=== PATIENT | female | born 1950 ===

== ENCOUNTER 2017-07-04 20:00 | Inpatient (IN) ==
[2017-07-04] MEDS ORDERED: PANTOPRAZOLE 40 MG VIAL IV STA (20:29)
[2017-07-04 21:41] LABS: Basophils % 1.2 % (0.0-0.8); Eosinophils # 0.1 10*3/uL (0.0-0.87); Eosinophils % 4.7 % (0.00-10.9); Hematocrit 33.9 VOL% (35.7-47.0); Immature Granulocytes % 1.2 %; Immature Granulocytes Absolute 0.02 #; Lymphocytes # 0.6 10*3/uL (1.4-4.0); Lymphocytes % 37.9 % (21.3-54.2); Mean Corpuscular HGB Conc 32.4 GM/DL (32-36); Mean Corpuscular Hemoglobin 35 PG (27-34); Mean Corpuscular Volume 106.6 FL (87-102); Monocytes # 0.4 10*3/uL (0.11-0.8); Monocytes % 24.3 % (1.7-12.7); Neutrophils # 0.5 10*3/uL (1.4-7.4); Neutrophils % 30.7 % (38.7-73.9); Red Blood Count 3.18 MC/CUMM (3.8-5.5); Red Cell Distribution Width 14.6 % (9.3-17.3); White Blood Count 1.7 T/CUMM (4-12)
[2017-07-04 21:44] LABS: Platelet Count 37 T/CUMM (130-400)
[2017-07-04 21:48] LABS: INR 1.1; PT Patient Result 11.5 SECS; Partial Thromboplastin Time 30.3 SECS (0-40)
[2017-07-04 21:57] LABS: Albumin 2.9 G/DL (3.4-5.0); Bilirubin,Total 0.6 MG/DL (0.2-1.0); Calcium 8.7 MG/DL (8.5-10.1); Osmolality,Calculated 283.7 MOS/KG (273-304); Potassium 4.3 MMOL/L (3.5-5.1); Total Protein 7.2 G/DL (6.4-8.3); Uric Acid 4.6 MG/DL (2.6-6.0)
[2017-07-04 22:29] LABS: Band Neutrophils 12 % (0-10); Eosinophils 5 % (0-10); Lymphocytes 38 % (20-55); Polychromasia Slight; Segmented Neutrophils 27 % (50-85); Total Cells Counted 100
[2017-07-05] MEDS ORDERED: ONDANSETRON 4 MG/2 ML VIAL IV PRN (00:15)
[2017-07-05] MEDS ORDERED: GLUCAGON 1 MG VIAL IM PRN (00:15)
[2017-07-05] MEDS ORDERED: ACETAMINOPHEN 325 MG TABLET PO PRN (00:15)
[2017-07-05] MEDS ORDERED: DEXTROSE 50% 25 GM/50 ML VIAL IV PRN (00:15)
[2017-07-05] MEDS ORDERED: SEVELAMER CARBONATE 800 MG TABLET PO SCH (00:30)
[2017-07-05 06:59] LABS: Basophils % 0.6 % (0.0-0.8); Eosinophils # 0.1 10*3/uL (0.0-0.87); Eosinophils % 5.5 % (0.00-10.9); Hematocrit 31.9 VOL% (35.7-47.0); Hemoglobin 10.2 GM/DL (12.0-16.0); Immature Granulocytes % 1.1 %; Immature Granulocytes Absolute 0.02 #; Lymphocytes # 0.6 10*3/uL (1.4-4.0); Lymphocytes % 30.9 % (21.3-54.2); Mean Corpuscular Hemoglobin 35 PG (27-34); Mean Corpuscular Volume 108.1 FL (87-102); Mean Platelet Volume 12.2 FL (9.6-12.0); Monocytes # 0.4 10*3/uL (0.11-0.8); Monocytes % 24.3 % (1.7-12.7); Neutrophils # 0.7 10*3/uL (1.4-7.4); Neutrophils % 37.6 % (38.7-73.9); Platelet Count 40 T/CUMM (130-400); Red Blood Count 2.95 MC/CUMM (3.8-5.5); Red Cell Distribution Width 14.9 % (9.3-17.3); White Blood Count 1.8 T/CUMM (4-12)
[2017-07-05 07:18] LABS: Calcium 8.3 MG/DL (8.5-10.1); Osmolality,Calculated 291.3 MOS/KG (273-304)
[2017-07-05 07:41] LABS: Atypical Lymphocytes Few; Band Neutrophils 4 % (0-10); Eosinophils 7 % (0-10); Lymphocytes 30 % (20-55); Segmented Neutrophils 41 % (50-85); Total Cells Counted 100
[2017-07-05 07:42] LABS: Hypochromasia 1+; Macrocytosis Slight; Ovalocytes Slight
[2017-07-05 07:43] LABS: Platelet Estimate Decreased
[2017-07-05] MEDS ORDERED: PANTOPRAZOLE 40 MG VIAL IV SCH (09:00)
[2017-07-05] MEDS: SEVELAMER CARBONATE 800 MG TABLET PO SCH ×2 (12:01→16:35)
[2017-07-05 13:35] LABS: % Iron Saturation 40.7 % (18-50); Ferritin 437.8 ng/ml (8-252); Total Protein 6.4 G/DL (6.4-8.3)
[2017-07-06 05:39] LABS: Basophils % 0.4 % (0.0-0.8); Eosinophils # 0.1 10*3/uL (0.0-0.87); Eosinophils % 4.5 % (0.00-10.9); Hematocrit 31.6 VOL% (35.7-47.0); Hemoglobin 10.5 GM/DL (12.0-16.0); Immature Granulocytes % 0.7 %; Immature Granulocytes Absolute 0.02 #; Lymphocytes # 0.6 10*3/uL (1.4-4.0); Mean Corpuscular HGB Conc 33.2 GM/DL (32-36); Mean Corpuscular Hemoglobin 35 PG (27-34); Mean Corpuscular Volume 104.3 FL (87-102); Mean Platelet Volume 11.6 FL (9.6-12.0); Monocytes # 0.5 10*3/uL (0.11-0.8); Monocytes % 17.2 % (1.7-12.7); Neutrophils # 1.5 10*3/uL (1.4-7.4); Neutrophils % 55.2 % (38.7-73.9); Red Blood Count 3.03 MC/CUMM (3.8-5.5); Red Cell Distribution Width 14.6 % (9.3-17.3); White Blood Count 2.7 T/CUMM (4-12)
[2017-07-06 05:44] LABS: Platelet Count 48 T/CUMM (130-400)
[2017-07-06 06:03] LABS: Calcium 8.2 MG/DL (8.5-10.1); Osmolality,Calculated 292.5 MOS/KG (273-304); Potassium 5.1 MMOL/L (3.5-5.1)
[2017-07-06 06:38] LABS: Band Neutrophils 2 % (0-10); Eosinophils 3 % (0-10); Hypochromasia 2+; Lymphocytes 18 % (20-55); Macrocytosis 1+; Platelet Estimate Decreased; Segmented Neutrophils 62 % (50-85); Total Cells Counted 100
[2017-07-06 07:20] LABS: Total Protein (Chem) 6.4 G/DL (6.4-8.3)
[2017-07-06 08:38] LABS: Albumin (SPE) 3.4 G/DL (3.2-5.3); Albumin (SPE) Rel % 53.4 %; Alpha 1 (SPE) 0.2 G/DL (0.1-0.4); Alpha 2 (SPE) 0.5 G/DL (0.4-1.0); Alpha 2 (SPE) Rel % 8.1 %; Beta (SPE) 0.5 G/DL (0.5-1.1); Beta (SPE) Rel % 7.5 %; Gamma (SPE) 1.8 G/DL (0.7-1.7)
[2017-07-06] MEDS: SEVELAMER CARBONATE 800 MG TABLET PO SCH ×3 (09:22→18:36)
[2017-07-06 11:46] LABS: Hepatitis A Ab IgM Quant 0.13 Index; Hepatitis A Ab IgM Result Negative (Negative); Hepatitis B Core IgM Quant 0.19 Index; Hepatitis B Core IgM Result Negative (Negative); Hepatitis B Surface Ag Quant < 0.10 Index; Hepatitis B Surface Ag Result Negative (Negative); Hepatitis C Virus Ab Result Negative (Negative)
[2017-07-06] MEDS ORDERED: ALUMINUM/MAGNES/SIMETH MAX STR 30 ML UDCUP PO PRN (23:11)
[2017-07-07 07:29] VITALS: BP 122/74
[2017-07-07] MEDS: SEVELAMER CARBONATE 800 MG TABLET PO SCH (09:33)
[2017-07-07 10:01] LABS: Immuno Free Light Chain Lambda 34.11 MG/DL (0.57-2.63); Immuno Free Light Chain Ratio 1.22 MG/DL (0.26-1.65)
== END 2017-07-07 11:50 | disposition home or self-care (01) | DRG 441 ==
LOC: EDUNIT# → EDBD → N.ED 20:00 → SUATTDRO 07-05 00:18 → N.EDINP 07-05 00:18 → N.4E 07-05 00:46
PROVIDERS: ADMIT Internal Medicine Geriatric Medicine; ATTEND Internal Medicine

== ENCOUNTER 2018-07-26 12:29 | Inpatient (IN) ==
[2018-07-26] MEDS ORDERED: SODIUM CHLORIDE 0.9% 500 ML IV STA (13:05)
[2018-07-26 13:43] LABS: Basophils % 0.4 % (0.0-0.8); Eosinophils % 1.1 % (0.00-10.9); Immature Granulocytes % 0.7 %; Immature Granulocytes Absolute 0.02 #; Lymphocytes # 0.4 10*3/uL (1.4-4.0); Lymphocytes % 15.9 % (21.3-54.2); Mean Corpuscular Volume 111.1 FL (87-102); Mean Platelet Volume 12.6 FL (9.6-12.0); Monocytes % 16.6 % (1.7-12.7); Neutrophils % 65.3 % (38.7-73.9); Red Blood Count 1.71 MC/CUMM (3.8-5.5); Red Cell Distribution Width 17.2 % (9.3-17.3); White Blood Count 2.7 T/CUMM (4-12)
[2018-07-26 13:46] LABS: Hemoglobin 5.7 GM/DL (12.0-16.0); Platelet Count 12 T/CUMM (130-400)
[2018-07-26] MEDS ORDERED: SODIUM CHLORIDE 0.9% 1,000 ML IV PRN (13:55)
[2018-07-26 14:09] LABS: Basophils % 0.4 % (0.0-0.8); Eosinophils % 0.7 % (0.00-10.9); Hematocrit 31.8 VOL% (35.7-47.0); Hemoglobin 9.7 GM/DL (12.0-16.0); Immature Granulocytes % 0.7 %; Immature Granulocytes Absolute 0.03 #; Lymphocytes # 0.7 10*3/uL (1.4-4.0); Lymphocytes % 14.9 % (21.3-54.2); Mean Corpuscular HGB Conc 30.5 GM/DL (32-36); Mean Corpuscular Volume 106.7 FL (87-102); Mean Platelet Volume 12.4 FL (9.6-12.0); Monocytes % 15.1 % (1.7-12.7); Neutrophils % 68.2 % (38.7-73.9); Red Blood Count 2.98 MC/CUMM (3.8-5.5); Red Cell Distribution Width 17.2 % (9.3-17.3); White Blood Count 4.6 T/CUMM (4-12)
[2018-07-26 14:11] LABS: Platelet Count 26 T/CUMM (130-400)
[2018-07-26 14:19] LABS: Hypochromasia Slight; Lymphocytes 8 % (20-55); Microcytosis 1+; Ovalocytes 1+; Platelet Estimate Decreased; Polychromasia Few; Segmented Neutrophils 83 % (50-85); Spherocytes Few; Total Cells Counted 100
[2018-07-26 14:21] LABS: Hypochromasia Slight; Microcytosis 1+; Ovalocytes 1+; Platelet Estimate Decreased; Polychromasia Few; Spherocytes Few
[2018-07-26 14:45] LABS: Albumin 2.7 G/DL (3.4-5.0); Bilirubin,Total 1.2 MG/DL (0.2-1.0); Calcium 8.6 MG/DL (8.5-10.1); Osmolality,Calculated 285.4 MOS/KG (273-304)
[2018-07-26] MEDS ORDERED: DOCUSATE SODIUM 100 MG CAPSULE PO PRN (15:53)
[2018-07-26] MEDS ORDERED: ONDANSETRON 4 MG/2 ML VIAL IV PRN (15:53)
[2018-07-26] MEDS ORDERED: guaiFENesin/DM ER 600-30 MG TABLET PO PRN (15:53)
[2018-07-26] MEDS ORDERED: NOREPINEPHRINE 8 MG in SODIUM CHLORIDE 0.9% 242 ML IV PRN (16:25)
[2018-07-26 16:29] LABS: Risk Ratio 1.55; Thyroid Stimulating Hormone 10.2 uIU/ml (0.358-3.74); VLDL CHOLESTEROL 14.2 MG/DL
[2018-07-26] MEDS ORDERED: GLUCAGON 1 MG VIAL IM PRN (16:38)
[2018-07-26] MEDS ORDERED: DEXTROSE 50% 25 GM/50 ML VIAL IV PRN (16:38)
[2018-07-26 17:28] LABS: Hematocrit 30.6 VOL% (35.7-47.0); Hemoglobin 9.3 GM/DL (12.0-16.0)
[2018-07-26] MEDS ORDERED: fentaNYL 100 MCG/2 ML VIAL IV PRN (20:01)
[2018-07-26 21:00] LABS: Hemoglobin 9.3 GM/DL (12.0-16.0)
[2018-07-26] MEDS: INSULIN LISPRO 100 UNIT/ML SUBCUT SCH (21:33)
[2018-07-27 00:43] LABS: Hemoglobin 9.3 GM/DL (12.0-16.0)
[2018-07-27] MEDS ORDERED: LORazepam 2 MG/1 ML VIAL IM ONE (03:53)
[2018-07-27] MEDS ORDERED: LORazepam 2 MG/1 ML VIAL ONE (03:57)
[2018-07-27 04:32] LABS: Basophils % 0.4 % (0.0-0.8); Eosinophils % 0.6 % (0.00-10.9); Hematocrit 30.1 VOL% (35.7-47.0); Hemoglobin 9.1 GM/DL (12.0-16.0); Immature Granulocytes % 0.6 %; Immature Granulocytes Absolute 0.03 #; Lymphocytes # 0.6 10*3/uL (1.4-4.0); Lymphocytes % 12.4 % (21.3-54.2); Mean Corpuscular HGB Conc 30.2 GM/DL (32-36); Mean Corpuscular Volume 107.9 FL (87-102); Mean Platelet Volume 12.8 FL (9.6-12.0); Red Blood Count 2.79 MC/CUMM (3.8-5.5); Red Cell Distribution Width 17.4 % (9.3-17.3); White Blood Count 4.9 T/CUMM (4-12)
[2018-07-27 04:38] LABS: Platelet Count 26 T/CUMM (130-400)
[2018-07-27 04:53] LABS: Albumin 2.5 G/DL (3.4-5.0); Bilirubin,Total 1.4 MG/DL (0.2-1.0); Calcium 8.7 MG/DL (8.5-10.1); Osmolality,Calculated 289.4 MOS/KG (273-304); Total Protein 6.7 G/DL (6.4-8.3)
[2018-07-27 05:24] LABS: Platelet Estimate Decreased
[2018-07-27] MEDS: INSULIN LISPRO 100 UNIT/ML SUBCUT SCH ×4 (08:33→21:23)
[2018-07-27] MEDS ORDERED: PANTOPRAZOLE 40 MG TABLET PO SCH (09:00)
[2018-07-27] MEDS ORDERED: DOCUSATE SODIUM 100 MG CAPSULE PO PRN (10:46)
[2018-07-27] MEDS: SEVELAMER CARBONATE 800 MG TABLET PO SCH ×2 (12:17→17:23)
[2018-07-27] MEDS ORDERED: SODIUM CHLORIDE 0.9% 500 ML IV ONE (16:22)
[2018-07-27 22:44] LABS: Folate 4.5 NG/ML (5.4-24.0)
[2018-07-27] MEDS: NYSTATIN CREAM 15 GM TUBE TOP SCH (23:35)
[2018-07-28 04:38] LABS: Basophils % 0.4 % (0.0-0.8); Eosinophils # 0.1 10*3/uL (0.0-0.87); Eosinophils % 2.2 % (0.00-10.9); Hematocrit 25.8 VOL% (35.7-47.0); Hemoglobin 7.8 GM/DL (12.0-16.0); Immature Granulocytes % 0.9 %; Immature Granulocytes Absolute 0.04 #; Lymphocytes % 21.2 % (21.3-54.2); Mean Corpuscular HGB Conc 30.2 GM/DL (32-36); Mean Corpuscular Volume 107.5 FL (87-102); Mean Platelet Volume 13.1 FL (9.6-12.0); Monocytes % 11.3 % (1.7-12.7); Red Cell Distribution Width 17.4 % (9.3-17.3); White Blood Count 4.5 T/CUMM (4-12)
[2018-07-28 04:44] LABS: Platelet Count 35 T/CUMM (130-400)
[2018-07-28 04:50] LABS: Calcium 8.8 MG/DL (8.5-10.1); Osmolality,Calculated 300.1 MOS/KG (273-304)
[2018-07-28 04:55] LABS: Albumin 2.3 G/DL (3.4-5.0); Bilirubin,Total 1.3 MG/DL (0.2-1.0); Calcium 8.9 MG/DL (8.5-10.1); Osmolality,Calculated 299.1 MOS/KG (273-304); Total Protein 5.9 G/DL (6.4-8.3)
[2018-07-28] MEDS ORDERED: SODIUM CHLORIDE 0.9% 1,000 ML IV PRN (08:03)
[2018-07-28] MEDS ORDERED: CYANOCOBALAMIN 1000 MCG/1 ML VIAL IM ONE (09:00)
[2018-07-28 09:15] LABS: INR 1.3; PT Patient Result 13.8 SECS; Partial Thromboplastin Time 29.2 SECS (0-40)
[2018-07-28] MEDS: NYSTATIN CREAM 15 GM TUBE TOP SCH ×2 (09:15→21:01)
[2018-07-28] MEDS: FOLIC ACID 1 MG TABLET PO SCH ×2 (09:16→20:46)
[2018-07-28] MEDS: predniSONE 20 MG TABLET PO SCH (09:16)
[2018-07-28] MEDS: FAMOTIDINE 20 MG TABLET PO SCH ×2 (09:16→20:46)
[2018-07-28] MEDS: MIDODRINE 5 MG TABLET PO SCH ×3 (09:16→20:46)
[2018-07-28] MEDS: SEVELAMER CARBONATE 800 MG TABLET PO SCH ×3 (09:16→17:09)
[2018-07-28] MEDS: CINACALCET 30 MG TABLET PO SCH (09:16)
[2018-07-28] MEDS: SELENIUM SULFIDE 2.5% LOTION 120 ML BOTTLE TOP SCH (09:17)
[2018-07-28] MEDS: INSULIN LISPRO 100 UNIT/ML SUBCUT SCH ×4 (09:17→21:40)
[2018-07-28] MEDS: LIDOCAINE/PRILOCAINE CREAM 5 GM TUBE TOP SCH (13:03)
[2018-07-28 14:25] LABS: Hematocrit 34.1 VOL% (35.7-47.0); Hemoglobin 10.5 GM/DL (12.0-16.0)
[2018-07-29 06:58] LABS: Basophils % 0.3 % (0.0-0.8); Eosinophils # 0.1 10*3/uL (0.0-0.87); Hemoglobin 8.9 GM/DL (12.0-16.0); Immature Granulocytes % 0.9 %; Immature Granulocytes Absolute 0.05 #; Lymphocytes # 1.1 10*3/uL (1.4-4.0); Lymphocytes % 18.3 % (21.3-54.2); Mean Corpuscular HGB Conc 31.8 GM/DL (32-36); Mean Corpuscular Volume 98.6 FL (87-102); Mean Platelet Volume 12.2 FL (9.6-12.0); Monocytes % 12.3 % (1.7-12.7); Neutrophils % 67.2 % (38.7-73.9); Red Blood Count 2.84 MC/CUMM (3.8-5.5); Red Cell Distribution Width 22.2 % (9.3-17.3); White Blood Count 5.8 T/CUMM (4-12)
[2018-07-29 07:10] LABS: Platelet Count 36 T/CUMM (130-400)
[2018-07-29 07:16] LABS: Hypochromasia 1+; Platelet Estimate Decreased
[2018-07-29 07:17] LABS: Albumin 2.1 G/DL (3.4-5.0); Bilirubin,Total 1.4 MG/DL (0.2-1.0); Calcium 8.4 MG/DL (8.5-10.1); Macrocytosis Slight; Total Protein 5.8 G/DL (6.4-8.3)
[2018-07-29 07:18] LABS: Polychromasia Slight
[2018-07-29] MEDS: SEVELAMER CARBONATE 800 MG TABLET PO SCH ×3 (08:00→17:13)
[2018-07-29] MEDS: predniSONE 20 MG TABLET PO SCH (08:38)
[2018-07-29] MEDS: CINACALCET 30 MG TABLET PO SCH (08:38)
[2018-07-29] MEDS: MIDODRINE 5 MG TABLET PO SCH ×3 (08:39→21:02)
[2018-07-29] MEDS: FAMOTIDINE 20 MG TABLET PO SCH ×2 (08:40→21:02)
[2018-07-29] MEDS: NYSTATIN CREAM 15 GM TUBE TOP SCH ×2 (08:40→21:06)
[2018-07-29] MEDS: INSULIN LISPRO 100 UNIT/ML SUBCUT SCH ×4 (08:40→22:24)
[2018-07-29] MEDS ORDERED: MIDODRINE 2.5 MG TABLET PO SCH (09:00)
[2018-07-29] MEDS: SELENIUM SULFIDE 2.5% LOTION 120 ML BOTTLE TOP SCH (11:14)
[2018-07-29] MEDS: FOLIC ACID 1 MG TABLET PO SCH ×2 (11:14→21:02)
[2018-07-29 15:32] LABS: Hepatitis B Core IgM Quant < 0.05 Index; Hepatitis B Surface Ag Quant < 0.10 Index; Hepatitis B Surface Ag Result Negative (Negative); Hepatitis C Virus Ab Result Negative (Negative)
[2018-07-30 05:02] LABS: Basophils % 0.3 % (0.0-0.8); Eosinophils % 0.3 % (0.00-10.9); Hematocrit 31.8 VOL% (35.7-47.0); Hemoglobin 9.8 GM/DL (12.0-16.0); Immature Granulocytes % 1.3 %; Immature Granulocytes Absolute 0.08 #; Lymphocytes # 0.8 10*3/uL (1.4-4.0); Lymphocytes % 13.4 % (21.3-54.2); Mean Corpuscular HGB Conc 30.8 GM/DL (32-36); Mean Platelet Volume 10.9 FL (9.6-12.0); Monocytes % 10.6 % (1.7-12.7); Neutrophils % 74.1 % (38.7-73.9); Red Blood Count 3.18 MC/CUMM (3.8-5.5); Red Cell Distribution Width 21.6 % (9.3-17.3); White Blood Count 6.1 T/CUMM (4-12)
[2018-07-30 05:06] LABS: Platelet Count 46 T/CUMM (130-400)
[2018-07-30 05:11] LABS: Calcium 8.4 MG/DL (8.5-10.1)
[2018-07-30] MEDS ORDERED: SODIUM CHLORIDE 0.9% 250 ML IV SCH (08:00)
[2018-07-30] MEDS: INSULIN LISPRO 100 UNIT/ML SUBCUT SCH ×4 (13:57→21:46)
[2018-07-30] MEDS: MIDODRINE 5 MG TABLET PO SCH ×3 (13:58→20:53)
[2018-07-30] MEDS: SEVELAMER CARBONATE 800 MG TABLET PO SCH ×3 (13:58→16:29)
[2018-07-30] MEDS: FAMOTIDINE 20 MG TABLET PO SCH ×2 (16:29→20:53)
[2018-07-30] MEDS: predniSONE 20 MG TABLET PO SCH (16:29)
[2018-07-30] MEDS: FOLIC ACID 1 MG TABLET PO SCH ×2 (16:29→20:53)
[2018-07-30] MEDS: CINACALCET 30 MG TABLET PO SCH (16:29)
[2018-07-30] MEDS: NYSTATIN CREAM 15 GM TUBE TOP SCH ×2 (16:30→20:54)
[2018-07-30] MEDS: LIDOCAINE/PRILOCAINE CREAM 5 GM TUBE TOP SCH (18:26)
[2018-07-30] MEDS: SELENIUM SULFIDE 2.5% LOTION 120 ML BOTTLE TOP SCH (18:26)
[2018-07-31] MEDS: CINACALCET 30 MG TABLET PO SCH (08:37)
[2018-07-31] MEDS: SEVELAMER CARBONATE 800 MG TABLET PO SCH ×3 (08:37→16:55)
[2018-07-31] MEDS: predniSONE 20 MG TABLET PO SCH (08:38)
[2018-07-31] MEDS: NYSTATIN CREAM 15 GM TUBE TOP SCH ×2 (08:38→22:06)
[2018-07-31] MEDS: MIDODRINE 5 MG TABLET PO SCH ×3 (08:38→22:02)
[2018-07-31] MEDS: FOLIC ACID 1 MG TABLET PO SCH ×2 (08:38→22:02)
[2018-07-31] MEDS: FAMOTIDINE 20 MG TABLET PO SCH ×2 (08:38→22:02)
[2018-07-31] MEDS: INSULIN LISPRO 100 UNIT/ML SUBCUT SCH ×4 (08:44→22:08)
[2018-07-31] MEDS: SELENIUM SULFIDE 2.5% LOTION 120 ML BOTTLE TOP SCH (13:02)
[2018-08-01 06:23] LABS: Basophils % 0.2 % (0.0-0.8); Eosinophils % 0.6 % (0.00-10.9); Hematocrit 31.3 VOL% (35.7-47.0); Hemoglobin 9.8 GM/DL (12.0-16.0); Immature Granulocytes % 1.4 %; Immature Granulocytes Absolute 0.09 #; Lymphocytes # 0.9 10*3/uL (1.4-4.0); Lymphocytes % 14.2 % (21.3-54.2); Mean Corpuscular HGB Conc 31.3 GM/DL (32-36); Mean Platelet Volume 11.4 FL (9.6-12.0); Monocytes % 13.3 % (1.7-12.7); Neutrophils % 70.3 % (38.7-73.9); Red Cell Distribution Width 21.4 % (9.3-17.3); White Blood Count 6.3 T/CUMM (4-12)
[2018-08-01 06:24] LABS: Platelet Count 43 T/CUMM (130-400)
[2018-08-01 06:41] LABS: Calcium 8.5 MG/DL (8.5-10.1); Osmolality,Calculated 293.8 MOS/KG (273-304)
[2018-08-01 06:56] LABS: Hypochromasia 1+; Ovalocytes Slight; Platelet Estimate Decreased
[2018-08-01] MEDS: SEVELAMER CARBONATE 800 MG TABLET PO SCH ×3 (08:26→16:39)
[2018-08-01] MEDS: FOLIC ACID 1 MG TABLET PO SCH ×2 (08:26→21:40)
[2018-08-01] MEDS: MIDODRINE 5 MG TABLET PO SCH ×3 (08:26→21:40)
[2018-08-01] MEDS: FAMOTIDINE 20 MG TABLET PO SCH ×2 (08:26→21:40)
[2018-08-01] MEDS: predniSONE 20 MG TABLET PO SCH (08:26)
[2018-08-01] MEDS: NYSTATIN CREAM 15 GM TUBE TOP SCH ×2 (08:27→21:40)
[2018-08-01] MEDS: INSULIN LISPRO 100 UNIT/ML SUBCUT SCH ×4 (08:27→21:47)
[2018-08-01] MEDS: CINACALCET 30 MG TABLET PO SCH (12:17)
[2018-08-01] MEDS: SELENIUM SULFIDE 2.5% LOTION 120 ML BOTTLE TOP SCH (12:17)
[2018-08-02 05:21] LABS: Basophils % 0.3 % (0.0-0.8); Eosinophils % 0.6 % (0.00-10.9); Hematocrit 31.6 VOL% (35.7-47.0); Hemoglobin 9.8 GM/DL (12.0-16.0); Immature Granulocytes % 1.6 %; Immature Granulocytes Absolute 0.11 #; Lymphocytes # 1.1 10*3/uL (1.4-4.0); Mean Platelet Volume 12.2 FL (9.6-12.0); Monocytes % 11.5 % (1.7-12.7); Red Blood Count 3.13 MC/CUMM (3.8-5.5); Red Cell Distribution Width 21.3 % (9.3-17.3)
[2018-08-02 05:27] LABS: Platelet Count 48 T/CUMM (130-400)
[2018-08-02 05:42] LABS: Hypochromasia Slight; Ovalocytes Slight; Platelet Estimate Decreased
[2018-08-02 05:44] LABS: Macrocytosis Slight
[2018-08-02 05:46] LABS: Calcium 8.1 MG/DL (8.5-10.1)
[2018-08-02] MEDS: SEVELAMER CARBONATE 800 MG TABLET PO SCH ×3 (07:46→16:50)
[2018-08-02] MEDS: INSULIN LISPRO 100 UNIT/ML SUBCUT SCH ×4 (07:50→23:03)
[2018-08-02] MEDS: FAMOTIDINE 20 MG TABLET PO SCH ×2 (08:33→21:18)
[2018-08-02] MEDS: MIDODRINE 5 MG TABLET PO SCH ×3 (08:33→21:19)
[2018-08-02] MEDS: CINACALCET 30 MG TABLET PO SCH (08:33)
[2018-08-02] MEDS: NYSTATIN CREAM 15 GM TUBE TOP SCH ×2 (08:33→21:18)
[2018-08-02] MEDS: predniSONE 20 MG TABLET PO SCH (08:33)
[2018-08-02] MEDS: FOLIC ACID 1 MG TABLET PO SCH ×2 (08:33→21:18)
[2018-08-02] MEDS: SELENIUM SULFIDE 2.5% LOTION 120 ML BOTTLE TOP SCH (08:34)
[2018-08-02] MEDS: LIDOCAINE/PRILOCAINE CREAM 5 GM TUBE TOP SCH (10:08)
[2018-08-02] MEDS ORDERED: BISACODYL 5 MG TABLET PO ONE (12:00)
[2018-08-02] MEDS ORDERED: ceFAZolin 1,000 MG in SYRINGE 1 EACH IV ONE (13:01)
[2018-08-02] MEDS ORDERED: MIDODRINE 5 MG TABLET PO ONE (13:34)
[2018-08-02] MEDS ORDERED: BUPIVACAINE 0.25% /EPI 10 ML VIAL ONE (13:44)
[2018-08-02] MEDS ORDERED: HEPARIN 5,000 UNIT/1 ML VIAL ONE (13:44)
[2018-08-02] MEDS ORDERED: LIDOCAINE 1%/EPI INJ 20 ML VIAL ONE (13:44)
[2018-08-02] MEDS ORDERED: fentaNYL 100 MCG/2 ML VIAL ONE (15:30)
[2018-08-02] MEDS ORDERED: PROPOFOL 200 MG/20 ML VIAL IV ONE (15:30)
[2018-08-02] MEDS ORDERED: HEPARIN 10,000 UNIT/10 ML VIAL IV PRN (16:39)
[2018-08-02] MEDS ORDERED: POLYETHYLENE GLYCOL POWDER 255 GM BOTTLE PO ONE (18:00)
[2018-08-03 04:56] LABS: Basophils % 0.2 % (0.0-0.8); Eosinophils % 0.7 % (0.00-10.9); Hemoglobin 10.2 GM/DL (12.0-16.0); Immature Granulocytes % 1.2 %; Immature Granulocytes Absolute 0.07 #; Lymphocytes # 0.7 10*3/uL (1.4-4.0); Mean Corpuscular HGB Conc 30.9 GM/DL (32-36); Mean Corpuscular Volume 102.5 FL (87-102); Mean Platelet Volume 11.5 FL (9.6-12.0); Monocytes % 13.5 % (1.7-12.7); Neutrophils % 71.4 % (38.7-73.9); Red Blood Count 3.22 MC/CUMM (3.8-5.5); Red Cell Distribution Width 21.4 % (9.3-17.3); White Blood Count 5.7 T/CUMM (4-12)
[2018-08-03 05:03] LABS: Platelet Count 40 T/CUMM (130-400)
[2018-08-03 05:09] LABS: INR 1.2; PT Patient Result 13.4 SECS
[2018-08-03 05:16] LABS: Albumin 2.6 G/DL (3.4-5.0); Bilirubin,Total 1.7 MG/DL (0.2-1.0); Calcium 8.5 MG/DL (8.5-10.1); Total Protein 6.3 G/DL (6.4-8.3)
[2018-08-03 05:55] LABS: Hypochromasia Slight; Macrocytosis 1+
[2018-08-03 05:56] LABS: Anisocytosis 1+; Ovalocytes Slight; Platelet Estimate Decreased
[2018-08-03] MEDS ORDERED: SODIUM CHLORIDE 0.9% 1,000 ML IV PRN (06:51)
[2018-08-03] MEDS: INSULIN LISPRO 100 UNIT/ML SUBCUT SCH ×4 (07:17→20:20)
[2018-08-03] MEDS ORDERED: SODIUM CHLORIDE 0.9% 250 ML IV SCH (08:00)
[2018-08-03] MEDS ORDERED: LIDOCAINE 2% 5 ML VIAL ONE (09:00)
[2018-08-03] MEDS ORDERED: ETOMIDATE 20 MG/10 ML VIAL IV ONE (09:00)
[2018-08-03] MEDS ORDERED: PROPOFOL 200 MG/20 ML VIAL IV ONE (09:00)
[2018-08-03] MEDS: SEVELAMER CARBONATE 800 MG TABLET PO SCH ×3 (09:36→17:20)
[2018-08-03] MEDS: MIDODRINE 5 MG TABLET PO SCH ×3 (09:38→20:19)
[2018-08-03] MEDS: predniSONE 20 MG TABLET PO SCH (10:25)
[2018-08-03] MEDS: CINACALCET 30 MG TABLET PO SCH (10:25)
[2018-08-03] MEDS: SELENIUM SULFIDE 2.5% LOTION 120 ML BOTTLE TOP SCH (10:25)
[2018-08-03] MEDS: FOLIC ACID 1 MG TABLET PO SCH ×2 (10:25→20:19)
[2018-08-03] MEDS: NYSTATIN CREAM 15 GM TUBE TOP SCH ×2 (10:25→20:20)
[2018-08-03] MEDS: FAMOTIDINE 20 MG TABLET PO SCH ×2 (10:25→20:19)
[2018-08-03] MEDS: DEXTROSE 10% 1,000 ML IV SCH (11:00)
[2018-08-04] MEDS: SEVELAMER CARBONATE 800 MG TABLET PO SCH ×3 (07:31→17:03)
[2018-08-04] MEDS: MIDODRINE 5 MG TABLET PO SCH ×4 (07:32→22:23)
[2018-08-04] MEDS: FAMOTIDINE 20 MG TABLET PO SCH ×2 (07:32→11:50)
[2018-08-04] MEDS: predniSONE 20 MG TABLET PO SCH ×2 (07:32→11:50)
[2018-08-04] MEDS: INSULIN LISPRO 100 UNIT/ML SUBCUT SCH ×4 (07:32→22:26)
[2018-08-04 08:00] LABS: Basophils % 0.5 % (0.0-0.8); Eosinophils # 0.1 10*3/uL (0.0-0.87); Eosinophils % 2.3 % (0.00-10.9); Hematocrit 36.2 VOL% (35.7-47.0); Hemoglobin 10.9 GM/DL (12.0-16.0); Immature Granulocytes % 2.3 %; Immature Granulocytes Absolute 0.13 #; Lymphocytes # 0.8 10*3/uL (1.4-4.0); Lymphocytes % 14.7 % (21.3-54.2); Mean Corpuscular HGB Conc 30.1 GM/DL (32-36); Mean Corpuscular Volume 104.3 FL (87-102); Mean Platelet Volume 11.2 FL (9.6-12.0); Monocytes % 16.4 % (1.7-12.7); Neutrophils % 63.8 % (38.7-73.9); Red Blood Count 3.47 MC/CUMM (3.8-5.5); Red Cell Distribution Width 21.2 % (9.3-17.3); White Blood Count 5.7 T/CUMM (4-12)
[2018-08-04 08:02] LABS: Platelet Count 59 T/CUMM (130-400)
[2018-08-04 08:19] LABS: Calcium 7.9 MG/DL (8.5-10.1); Osmolality,Calculated 283.1 MOS/KG (273-304)
[2018-08-04 08:35] LABS: Atypical Lymphocytes Few; Eosinophils 1 % (0-10); Lymphocytes 17 % (20-55); Metamyelocytes 1 %; Segmented Neutrophils 69 % (50-85); Total Cells Counted 100
[2018-08-04 08:36] LABS: Macrocytosis 1+
[2018-08-04 08:38] LABS: Platelet Estimate Decreased
[2018-08-04] MEDS: LIDOCAINE/PRILOCAINE CREAM 5 GM TUBE TOP SCH (11:50)
[2018-08-04] MEDS: SELENIUM SULFIDE 2.5% LOTION 120 ML BOTTLE TOP SCH (11:50)
[2018-08-04] MEDS: CINACALCET 30 MG TABLET PO SCH (13:29)
[2018-08-04] MEDS: NYSTATIN CREAM 15 GM TUBE TOP SCH ×2 (13:30→22:24)
[2018-08-04] MEDS: FOLIC ACID 1 MG TABLET PO SCH ×2 (17:04→22:23)
[2018-08-04] MEDS: DEXTROSE 10% 1,000 ML IV SCH (17:50)
[2018-08-05 05:44] LABS: Basophils % 0.2 % (0.0-0.8); Eosinophils # 0.1 10*3/uL (0.0-0.87); Eosinophils % 1.9 % (0.00-10.9); Hematocrit 31.3 VOL% (35.7-47.0); Hemoglobin 9.5 GM/DL (12.0-16.0); Immature Granulocytes Absolute 0.12 #; Lymphocytes # 0.9 10*3/uL (1.4-4.0); Lymphocytes % 14.5 % (21.3-54.2); Mean Corpuscular HGB Conc 30.4 GM/DL (32-36); Mean Platelet Volume 11.9 FL (9.6-12.0); NRBC # 0.02 10*3/uL; Neutrophils % 67.4 % (38.7-73.9); Red Blood Count 3.01 MC/CUMM (3.8-5.5); Red Cell Distribution Width 20.6 % (9.3-17.3); White Blood Count 5.9 T/CUMM (4-12)
[2018-08-05 05:49] LABS: Platelet Count 59 T/CUMM (130-400)
[2018-08-05 06:02] LABS: Osmolality,Calculated 279.7 MOS/KG (273-304)
[2018-08-05 07:09] LABS: Platelet Estimate Decreased
[2018-08-05 07:10] LABS: Anisocytosis 2+; Macrocytosis 1+
[2018-08-05] MEDS: SEVELAMER CARBONATE 800 MG TABLET PO SCH ×3 (08:32→18:49)
[2018-08-05] MEDS: MIDODRINE 5 MG TABLET PO SCH ×3 (08:32→22:33)
[2018-08-05] MEDS: predniSONE 20 MG TABLET PO SCH (08:32)
[2018-08-05] MEDS: CINACALCET 30 MG TABLET PO SCH (08:32)
[2018-08-05] MEDS: FOLIC ACID 1 MG TABLET PO SCH ×2 (08:32→22:34)
[2018-08-05] MEDS: FAMOTIDINE 20 MG TABLET PO SCH (08:32)
[2018-08-05] MEDS: SELENIUM SULFIDE 2.5% LOTION 120 ML BOTTLE TOP SCH (08:33)
[2018-08-05] MEDS: NYSTATIN CREAM 15 GM TUBE TOP SCH ×2 (08:33→22:34)
[2018-08-05] MEDS: INSULIN LISPRO 100 UNIT/ML SUBCUT SCH ×4 (13:38→22:32)
[2018-08-05] MEDS: DEXTROSE 10% 1,000 ML IV SCH (13:39)
[2018-08-06 05:50] LABS: Basophils % 0.3 % (0.0-0.8); Eosinophils # 0.1 10*3/uL (0.0-0.87); Hematocrit 30.5 VOL% (35.7-47.0); Hemoglobin 9.2 GM/DL (12.0-16.0); Immature Granulocytes % 1.7 %; Immature Granulocytes Absolute 0.12 #; Lymphocytes # 0.8 10*3/uL (1.4-4.0); Lymphocytes % 11.4 % (21.3-54.2); Mean Corpuscular HGB Conc 30.2 GM/DL (32-36); Mean Corpuscular Volume 103.7 FL (87-102); Monocytes % 14.6 % (1.7-12.7); Platelet Count 64 T/CUMM (130-400); Red Blood Count 2.94 MC/CUMM (3.8-5.5); Red Cell Distribution Width 20.3 % (9.3-17.3); White Blood Count 6.9 T/CUMM (4-12)
[2018-08-06 06:20] LABS: Calcium 7.8 MG/DL (8.5-10.1); Osmolality,Calculated 280.8 MOS/KG (273-304)
[2018-08-06 06:43] LABS: Band Neutrophils 3 % (0-10); Eosinophils 1 % (0-10); Lymphocytes 9 % (20-55); Segmented Neutrophils 74 % (50-85); Total Cells Counted 100
[2018-08-06 06:44] LABS: Anisocytosis 1+; Ovalocytes 1+; Platelet Estimate Decreased
[2018-08-06] MEDS: SEVELAMER CARBONATE 800 MG TABLET PO SCH ×2 (07:56→14:51)
[2018-08-06] MEDS: INSULIN LISPRO 100 UNIT/ML SUBCUT SCH ×2 (07:56→14:51)
[2018-08-06] MEDS: MIDODRINE 5 MG TABLET PO SCH ×2 (07:57→08:44)
[2018-08-06] MEDS: FAMOTIDINE 20 MG TABLET PO SCH ×2 (07:57→08:43)
[2018-08-06] MEDS: predniSONE 20 MG TABLET PO SCH ×2 (07:58→08:43)
[2018-08-06] MEDS: FOLIC ACID 1 MG TABLET PO SCH ×2 (07:58→08:43)
[2018-08-06] MEDS: CINACALCET 30 MG TABLET PO SCH ×2 (07:58→08:44)
[2018-08-06 08:42] VITALS: BP 94/40
[2018-08-06] MEDS: LIDOCAINE/PRILOCAINE CREAM 5 GM TUBE TOP SCH (11:48)
[2018-08-06] MEDS: NYSTATIN CREAM 15 GM TUBE TOP SCH (11:49)
[2018-08-06] MEDS: SELENIUM SULFIDE 2.5% LOTION 120 ML BOTTLE TOP SCH (11:49)
[2018-08-06] MEDS: DEXTROSE 10% 1,000 ML IV SCH (14:51)
== END 2018-08-06 14:00 | disposition home or self-care (01) | DRG 432 ==
LOC: EDBD → EDUNIT# → N.ED 12:29 → N.EDINP 15:53 → SUATTDRO 15:54 → N.ICU 17:34 → N.2E 07-27 13:59
PROVIDERS: ATTEND Internal Medicine

== ENCOUNTER 2018-09-07 00:27 | Inpatient (IN) ==
[2018-09-07] MEDS ORDERED: SODIUM CHLORIDE 0.45% 1,000 ML IV SCH (03:30)
[2018-09-07] MEDS ORDERED: MORPHINE 4 MG/1 ML VIAL IV PRN (03:36)
[2018-09-07] MEDS ORDERED: ONDANSETRON 4 MG/2 ML VIAL IV PRN (03:36)
[2018-09-07] MEDS ORDERED: NICOTINE 21 MG/24 HR PATCH TRANSDERM PRN (03:36)
[2018-09-07 05:13] LABS: Calcium 9.2 MG/DL (8.5-10.1); Osmolality,Calculated 287.7 MOS/KG (273-304)
[2018-09-07 05:15] LABS: Basophils % 0.4 % (0.0-0.8); Eosinophils # 0.1 10*3/uL (0.0-0.87); Eosinophils % 0.9 % (0.00-10.9); Hemoglobin 8.8 GM/DL (12.0-16.0); Immature Granulocytes % 0.5 %; Immature Granulocytes Absolute 0.04 #; Lymphocytes # 0.9 10*3/uL (1.4-4.0); Lymphocytes % 11.3 % (21.3-54.2); Mean Corpuscular HGB Conc 30.3 GM/DL (32-36); Mean Corpuscular Volume 108.6 FL (87-102); Mean Platelet Volume 12.9 FL (9.6-12.0); Monocytes % 13.3 % (1.7-12.7); Neutrophils % 73.6 % (38.7-73.9); Platelet Count 46 T/CUMM (130-400); Red Blood Count 2.67 MC/CUMM (3.8-5.5); Red Cell Distribution Width 17.4 % (9.3-17.3); White Blood Count 8.1 T/CUMM (4-12)
[2018-09-07 05:39] LABS: Hypochromasia 1+; Ovalocytes Slight; Platelet Estimate Decreased
[2018-09-07] MEDS ORDERED: SODIUM CHLORIDE 0.9% 250 ML IV ONE (06:03)
[2018-09-07] MEDS ORDERED: SODIUM CHLORIDE 0.9% 1,000 ML IV SCH ×2 (06:30→07:30)
[2018-09-07] MEDS ORDERED: OCTREOTIDE 500 MCG in SODIUM CHLORIDE 0.9% 100 ML IV SCH (07:00)
[2018-09-07] MEDS ORDERED: OCTREOTIDE 100 MCG/ML SYRINGE IV ONE (08:00)
[2018-09-07] MEDS: PANTOPRAZOLE 40 MG VIAL IV SCH ×2 (08:06→21:08)
[2018-09-07 09:04] LABS: Hematocrit 25.2 VOL% (35.7-47.0); Hemoglobin 7.6 GM/DL (12.0-16.0)
[2018-09-07 09:45] LABS: Troponin I 0.104 NG/ML (0.00-0.045)
[2018-09-07 16:30] LABS: Hematocrit 31.2 VOL% (35.7-47.0); Hemoglobin 9.1 GM/DL (12.0-16.0)
[2018-09-07 16:59] LABS: Troponin I 0.076 NG/ML (0.00-0.045)
[2018-09-07] MEDS: DICYCLOMINE 10 MG CAPSULE PO SCH ×2 (17:56→21:08)
[2018-09-07 20:53] LABS: Hemoglobin 9.4 GM/DL (12.0-16.0)
[2018-09-08] MEDS ORDERED: HEPARIN 10,000 UNIT/10 ML VIAL IV SCH (09:00)
[2018-09-08] MEDS ORDERED: EPOETIN ALFA 10,000 UNIT/1 ML VIAL IV SCH (09:00)
[2018-09-08] MEDS: DICYCLOMINE 10 MG CAPSULE PO SCH ×2 (09:29→23:38)
[2018-09-08] MEDS: PANTOPRAZOLE 40 MG VIAL IV SCH ×2 (09:30→22:49)
[2018-09-08] MEDS ORDERED: SODIUM CHLORIDE 0.9% 250 ML IV ONE ×2 (16:15→18:24)
[2018-09-08 18:56] LABS: Hematocrit 25.8 VOL% (35.7-47.0); Hemoglobin 7.8 GM/DL (12.0-16.0)
[2018-09-08] MEDS: PHENYLEPHRINE DRIP 40 MG/250 ML PREMIX IV PRN (20:17)
[2018-09-08] MEDS: MIDODRINE 5 MG TABLET PO SCH (23:38)
[2018-09-09 04:36] LABS: Basophils # 0.1 10*3/uL (0.0-0.2); Basophils % 0.2 % (0.0-0.8); Hematocrit 35.2 VOL% (35.7-47.0); Hemoglobin 11.1 GM/DL (12.0-16.0); Immature Granulocytes % 0.9 %; Immature Granulocytes Absolute 0.21 #; Lymphocytes # 0.8 10*3/uL (1.4-4.0); Lymphocytes % 3.4 % (21.3-54.2); Mean Corpuscular HGB Conc 31.5 GM/DL (32-36); Mean Corpuscular Volume 98.3 FL (87-102); Mean Platelet Volume 13.7 FL (9.6-12.0); Monocytes % 7.4 % (1.7-12.7); Neutrophils % 88.1 % (38.7-73.9); Platelet Count 70 T/CUMM (130-400); Red Blood Count 3.58 MC/CUMM (3.8-5.5); Red Cell Distribution Width 20.7 % (9.3-17.3); White Blood Count 22.2 T/CUMM (4-12)
[2018-09-09 04:53] LABS: Calcium 8.5 MG/DL (8.5-10.1); Osmolality,Calculated 281.8 MOS/KG (273-304)
[2018-09-09 05:07] LABS: Band Neutrophils 9 % (0-10); Lymphocytes 8 % (20-55); Segmented Neutrophils 78 % (50-85)
[2018-09-09 05:09] LABS: Burr Cells 2+; Hypochromasia Slight; Platelet Estimate Decreased; Polychromasia Few; Total Cells Counted 100
[2018-09-09] MEDS: PHENYLEPHRINE DRIP 40 MG/250 ML PREMIX IV PRN ×2 (08:51→21:50)
[2018-09-09] MEDS: DICYCLOMINE 10 MG CAPSULE PO SCH ×2 (09:00→21:58)
[2018-09-09] MEDS: MIDODRINE 5 MG TABLET PO SCH ×3 (09:00→21:58)
[2018-09-09] MEDS ORDERED: SODIUM CHLORIDE 0.9% 1,000 ML IV PRN (09:21)
[2018-09-09 09:56] LABS: Hematocrit 34.8 VOL% (35.7-47.0)
[2018-09-09] MEDS ORDERED: EPINEPHrine 1 MG/ML VIAL ONE (10:33)
[2018-09-09] MEDS: PANTOPRAZOLE 40 MG VIAL IV SCH ×2 (11:30→21:49)
[2018-09-09] MEDS: SODIUM CHLORIDE 0.9% 250 ML IV SCH ×2 (12:32→21:49)
[2018-09-09 20:48] VITALS: BP 90/34
[2018-09-09] MEDS ORDERED: DESITIN 4OZ/NYSTATIN 15 GRAM MIXTURE PASTE TOP SCH (21:00)
[2018-09-09 21:45] LABS: Hematocrit 36.9 VOL% (35.7-47.0); Hemoglobin 11.5 GM/DL (12.0-16.0)
[2018-09-10 04:43] LABS: Basophils # 0.1 10*3/uL (0.0-0.2); Basophils % 0.3 % (0.0-0.8); Hematocrit 34.7 VOL% (35.7-47.0); Hemoglobin 10.9 GM/DL (12.0-16.0); Immature Granulocytes % 4.9 %; Immature Granulocytes Absolute 0.85 #; Lymphocytes # 0.9 10*3/uL (1.4-4.0); Lymphocytes % 5.3 % (21.3-54.2); Mean Corpuscular HGB Conc 31.4 GM/DL (32-36); Mean Corpuscular Volume 95.3 FL (87-102); Mean Platelet Volume 12.7 FL (9.6-12.0); Monocytes % 5.6 % (1.7-12.7); NRBC # 0.02 10*3/uL; Neutrophils % 83.9 % (38.7-73.9); Platelet Count 60 T/CUMM (130-400); Red Blood Count 3.64 MC/CUMM (3.8-5.5); Red Cell Distribution Width 20.9 % (9.3-17.3); White Blood Count 17.4 T/CUMM (4-12)
[2018-09-10 04:47] LABS: Calcium 8.5 MG/DL (8.5-10.1); Osmolality,Calculated 288.5 MOS/KG (273-304)
[2018-09-10 05:10] LABS: Acanthocytes Few; Band Neutrophils 13 % (0-10); Lymphocytes 5 % (20-55); Metamyelocytes 1 %; Ovalocytes Few; Platelet Estimate Decreased; Segmented Neutrophils 77 % (50-85); Total Cells Counted 100
[2018-09-10] MEDS ORDERED: NOREPINEPHRINE 8 MG in SODIUM CHLORIDE 0.9% 242 ML IV PRN (05:55)
[2018-09-10] MEDS ORDERED: VASOPRESSIN 100 UNITS in SODIUM CHLORIDE 0.9% 95 ML IV SCH (06:00)
[2018-09-10] MEDS ORDERED: NOREPINEPHRINE 4 MG/4 ML VIAL IV ONE ×2 (06:02→06:22)
[2018-09-10] MEDS ORDERED: SODIUM BICARBONATE 10 MEQ/10 ML SYRINGE IV ONE (06:21)
[2018-09-10] MEDS ORDERED: EPINEPHrine 1 MG/ML VIAL ONE (06:21)
== END 2018-09-10 06:32 | disposition expired | DRG 377 ==
LOC: N.CC 02:45 → SUATTDRO 03:36
PROVIDERS: ADMIT Internal Medicine; ATTEND Internal Medicine